=== PATIENT | female | born 1965 | race Asian ===

== ENCOUNTER 2025-04-20 10:47 | Emergency (ER) | payer OTHER, SELFPAY ==
[~2025-04-20] VITALS: Ht 149.9 cm; Wt 65.9 kg
[2025-04-20] MEDS ORDERED: POLY17PO47 PO (11:24)
[2025-04-20] MEDS ORDERED: SIME80TA82 PO (11:24)
[2025-04-20] MEDS ORDERED: ONDA-104 (11:24)
[2025-04-20] MEDS ORDERED: OXYC5 PO (11:24)
[2025-04-20] MEDS ORDERED: ATOR40TA28 PO (11:24)
[2025-04-20] MEDS ORDERED: [UNRECOGNIZED DRUG - CODE] TD (11:24)
[2025-04-20] MEDS ORDERED: SENN-376 PO (11:24)
[2025-04-20 11:25] VITALS: TEMP 97.6
[2025-04-20] MEDS: SODIUM PHOSPHATE,MONO-DIBASIC 133 ML ENEMA PR ONE (12:36)
[2025-04-20 13:00] VITALS: BP 115/69; PULSE 78; RESP 19; O2SAT 98
== END 2025-04-20 14:41 | disposition home or self-care (01) ==
LOC: EMS 10:50
DX: K59.00 Constipation, unspecified (principal); Z79.899 Other long term (current) drug therapy
CPT/HCPCS: 74018; 99284